=== PATIENT | female | born 1980 | race Caucasian/White ===

== ENCOUNTER → 2016-08-05 | Outpatient (CLI) | payer OTHER | LOC: EMI 10:47 | DX: R51 Headache (principal) | CPT/HCPCS: 70551 ==

== ENCOUNTER → 2021-04-09 | Outpatient (CLI) | payer BC ==
[~2021-04-09] MED LIST: BETAMETHASONE TD; DULERA 100 MCG8.8 GM INH; EMGALITY120 MG/1 M SC; ESCITALOPRAM OX20 MG PO; FAMOTIDINE40 MG PO; HYDROXYZINE HCL10 MG PO; IRBESARTAN-HCT1 EACH PO; KEFLEX500 MG PO; LEVOCETIRIZINE D5 MG PO; LEVOTHYROXINE75 MCG PO; MONTELUKAST SOD10 MG PO; NORVASC 5 MG TAB5 MG PO; OXCARBAZEPINE300 MG PO; PERCOCET 5-3251 EACH PO; SUMATRIPTAN SUC50 MG PO; TOPROL XL25 MG PO; TORADOL 10 MG T10 MG PO; TRAZODONE HCL50 MG PO
== END ==
LOC: HEART 5 11:27
DX: R07.9 Chest pain, unspecified (principal); R00.2 Palpitations

== ENCOUNTER → 2021-06-17 | Outpatient (CLI) | payer BC ==
[~2021-06-17] VITALS: Ht 165.1 cm; Wt 129.3 kg
== END ==
LOC: EROP 11:54
DX: U07.1 COVID-19 (principal); Z23 Encounter for immunization; J98.4 Other disorders of lung; I10 Essential (primary) hypertension
CPT/HCPCS: M0247; Q0247